=== PATIENT | male | born 1965 | race Two or more races ===

== ENCOUNTER 2024-01-17 14:02 | Inpatient (IN) ==
[2024-01-17] MEDS: TICAGRELOR 90 MG TAB ONE (14:09)
[2024-01-17] MEDS: HEPARIN SOD (PORCINE) 1000 UNIT/ML ONE (14:09)
[2024-01-17] MEDS ORDERED: HEPARIN SOD (PORCINE) 1000 UNIT/ML IV ONE (14:15)
[2024-01-17] MEDS ORDERED: TICAGRELOR 90 MG TAB PO ONE (14:15)
--- NOTE | 2024-01-17 14:21 | XRay Report ---
SINGLE VIEW CHEST CLINICAL HISTORY: Atypical chest pain. FINDINGS: An AP, portable, upright chest radiograph is obtained. No prior studies are available for c omparison at the time of dictation. There is abnormal widening of the mediastinum. The heart is top n ormal for projection. Atelectasis is noted at the lung bases. The lungs and pleural spaces are otherw ise clear. No pneumothorax is seen. The bony thorax is grossly intact. IMPRESSION: 1. The lungs are clear. 2. There is abnormal widening of the mediastinum, which is an indeterminant finding and could potenti ally be seen with lymphadenopathy. A contrast enhanced chest CT is recommended for further assessment . ACT 112: Negative or not required by law. Electronically signed by: Julián Coleamn M.D. 01/17/2024 2:20 PM
--- NOTE | 2024-01-17 14:22 | Emergency Department Note ---
Impression & Plan ST elevation (STEMI) myocardial infarction ED Provider Note Provider: Giovani Raman MD DATE OF SERVICE: 01/20/2024 CHIEF COMPLAINT: Chest pain HISTORY OF PRESENT ILLNESS: Patient is a 58-year-old gentleman presented via ambulance from [facility] today with reports of onset of midsternal chest discomfort around 1230p or so. Some left arm numbness is reported. Had nitroglycerin prior to arrival without improvement of pain. Contacted by EMS prior to arrival with prehospital EKG indicative of inferior lateral wall STEMI. Patient with a history of hypertension and took Norvasc this morning. Sharp central chest pain. Slight numbness to left arm. Nausea earlier not now after receiving nausea medication. EMS gave 324mg of aspirin as well as 8 mg of morphine and 4 mg of Zofran. Patient denies a cardiac history or family history of heart disease. PAST MEDICAL HISTORY: As noted above MEDICATIONS: Norvasc reported SOCIAL HISTORY: Currently at the [facility], states he is a non- smoker, speak Rwandan PHYSICAL EXAM: GENERAL: alert and oriented in no acute distress on stretcher, guards at bedside, shackles in place and arms and wrists Head: normocephalic and atraumatic EYES: No injection, discharge or icterus. NECK: Trachea midline. Supple. ENT: Mucous membranes pink and moist. LUNGS: Airway patent. No retractions. Breath sounds clear with good air entry bilaterally. HEART: Regular rate and rhythm. Minimal chest wall tenderness. No crepitus. No signs of trauma. ABDOMEN: Soft and non-tender, without guarding or rebound. SKIN: Acyanotic, warm, dry, without rashes EXTREMITIES: Without swelling, tenderness or deformity NEUROLOGICAL: No focal deficits. No aphasia. No facial droop or slurred speech. EK bpm sinus rhythm without PAC. 1 P[address] noted. Acute inferior ST segment elevation with aVL and V1 V2 T wave inversion ST depression. Slight borderline V6 ST elevation. QTc 455. CONTINUOUS CARDIAC MONITORING: was ordered and showed a heart rate of 70s to 80s bpm in normal sinus rhythm Patient's laboratory studies and imaging reviewed. Differential includes Cardiac ischemia, aortic dissection, pulmonary embolism, pneumothorax, pneumonia, pericarditis, myocarditis, esophageal rupture, GERD, cholecystitis, pancreatitis, musculoskeletal, as well as other pathologies. IMPRESSION/MEDICAL DECISION MAKING: Heart alert based on prehospital EKG. Patient history of hypertension but no cardiac history reported. Inferior ST changes. Nitroglycerin prior and without improvement. Given Zofran and morphine for symptom control by EMS prior to arrival. EKG obtained here and basic blood work. Automobile Damage Appraiser service was used for communication with the patient although he has some broken Pashto. Denies breathing issue currently. Interventional cardiology evaluated the patient and their EKG. primarily inferior ST segment elevation. Given 180 mg of oral Brilinta as well as 5000 units of IV heparin. Discussed with the patient via rehabilitation services coordinator service and benefits of proceeding with cardiac catheterization. Not hypoxic or tachycardic here. Afebrile. Doubt infectious source. Benign abdomen. Chest x-ray without obvious pneumothorax or pneumonia, questionably some mediastinal widening. Lower suspicion this time for VTE/PE. Although patient is hypertensive reports more anterior chest pain with the STEMI findings on EKG lower suspicion for dissection. Believe he emergent needs to go to the [facility]. No leg swelling appreciable and does not seem to be in heart failure. Given lack of improvement earlier prior to arrival with nitroglycerin earlier will not give additional. Patient describes 7 out of 10 pain. Patient is significantly hypertensive upon arrival. Patient to [facility] for further evaluation. Hospitalist team made aware the patient. DIAGNOSIS: STEMI, chest pain DISPOSITION: Evaluated by cardiology to [facility] for further evaluation Critical Care I have personally spent 31 minutes of critical care time in the direct management of this patient. This includes bedside care, interpretation of diagnostic studies, and testing, discussion with consultants, patient, and other required patient management activities. These 31 minutes is in excess of all separately billable procedures. Past Med/Surg History Problem List (Updated 01/17/24 @ 13:51 by Giovani Raman M.D.) ST elevation (STEMI) myocardial infarction (Acute) Social History Smoking Status: Unknown if ever smoked Preferred Language: Rwandan Feels Safe at Home: Yes Results & Data (ED) Vital Signs Vital Signs - 24 hr 01/17/24 14:03 01/17/24 14:15 Temperature 36.6 C Temperature Source Oral Pulse Rate 79 77 Respiratory Rate 22 Respiratory Effort / Characteristics Non-Labored Spontaneous Respiratory Depth Normal Blood Pressure 171/122 H Blood Pressure Mean 138 Pulse Oximetry 100 Oxygen Delivery Method Room Air Sepsis Recent Fever Within 48 Hours No Sepsis New/Unexplained Change in Mental Status N/A Sepsis Action Taken by Nursing No Action Required Laboratory Data 01/17/24 14:13 01/17/24 14:13 Lab Results 01/17/24 Range/Units 14:14 POC Hgb 12.6 L (14.0-18.0) g/dl POC Hct 37 L (42-52) % POC Sodium 140 (135-144) mmol/L POC Potassium 3.9 (3.3-5.0) mmol/L POC Chloride 105 (101-112) mmol/L POC Total CO2 22 L (24-31) mmol/L POC Anion Gap 18.0 (16-25) mmol/L POC BUN 20 H (7-18) mg/dl POC Creatinine 1.3 (0.6-1.3) mg/dl POC Glucose (other) 112 H (70-99) mg/dl POC Ioniz Calcium Sirisha 1.13 (1.12-1.32) mmol/l Administered Medications Discontinued Medications Heparin Sodium (Porcine) (Heparin Sod (Porcine) 1000 Unit/Ml) Confirm Administered Dose 1,000 units .ROUTE .Q-go ONE Stop: 01/17/24 13:59 Last Admin: 01/17/24 14:09 Dose: 5,000 units Documented By: MIKE Co-signed By: ELAN Ticagrelor (Ticagrelor 90 Mg Tab) Confirm Administered Dose 180 mg .ROUTE .Mister Spex ONE Stop: 01/17/24 13:59 Last Admin: 01/17/24 14:09 Dose: 180 mg Documented By: MIKE Imaging Data Radiologist's Impression: Chest X-Ray 01/17/24 13:59 SINGLE VIEW CHEST CLINICAL HISTORY: Atypical chest pain. FINDINGS: An AP, portable, upright chest radiograph is obtained. No prior studies are available for comparison at the time of dictation. There is abnormal widening of the mediastinum. The heart is top normal for projection. Atelectasis is noted at the lung bases. The lungs and pleural spaces are otherwise clear. No pneumothorax is seen. The bony thorax is grossly intact. IMPRESSION: 1. The lungs are clear. 2. There is abnormal widening of the mediastinum, which is an indeterminant finding and could potentially be seen with lymphadenopathy. A contrast enhanced chest CT is recommended for further assessment. ACT 112: Negative or not required by law. Electronically signed by: Julián Coleman M.D. 01/17/2024 2:20 PM Discharge Plan Visit Data Chief Complaint: Heart Alert ED Provider: Giovani Raman
[2024-01-17 14:27] LABS: iSTAT Creatinine 1.3 mg/dl (0.6-1.3); iSTAT Hemoglobin 12.6 g/dl (14.0-18.0); iSTAT Ionized Calcium 1.13 mmol/l (1.12-1.32); iSTAT Potassium 3.9 mmol/L (3.3-5.0)
[2024-01-17 14:38] LABS: Basophils # (auto) 0.01 K/uL (0.00-0.20); Basophils % (auto) 0.2 %; Eosinophils # (auto) 0.04 K/uL (0.00-0.50); Eosinophils % (auto) 0.7 %; Hematocrit (blood only) 37.1 % (42.0-52.0); Hemoglobin 12.9 g/dl (14.0-18.0); Immature Granulocytes # (auto) 0.01 K/uL (0.01-0.20); Immature Granulocytes % (auto) 0.2 %; Lymphocytes # (auto) 2.35 K/uL (1.20-3.40); Mean Corpuscular Hemoglobin 30.1 pg (25.0-34.0); Mean Corpuscular Hgb Conc 34.8 g/dL (32.0-36.0); Mean Corpuscular Volume 86.7 fL (80.0-100.0); Neutrophils # (auto) 2.45 K/uL (1.40-6.50); Neutrophils % (auto) 44.9 %; Platelet Count 150 K/uL (130-400); RDW Coefficient of Variation 12.9 % (11.5-14.5); RDW Standard Deviation 40.9 fL (36.4-46.3); Red Blood Count 4.28 M/uL (4.70-6.10); White Blood Count 5.46 K/ul (4.8-10.8)
[2024-01-17 14:51] LABS: Alanine Aminotransferase 25 U/L (7-52); Albumin Level 3.4 gm/dl (3.4-5.0); Alkaline Phosphatase 100 U/L (34-104); Anion Gap 6 (3-11); Aspartate Aminotransferase 24 U/L (13-39); BUN Creatinine Ratio 18.9 (10-20); Bilirubin,Total 0.6 mg/dl (0.2-1.0); Blood Urea Nitrogen 21 mg/dl (6-23); Carbon Dioxide 25 mmol/L (21-32); Chloride 106 mmol/L (98-107); Creatine Kinase 306 U/L (30-223); Globulin 3.4 gm/dl (2.5-4.0); Glucose 113 mg/dl (70-99(Fasting)); Lipase 15 U/L (11-82); Sodium 137 mmol/L (136-145); Total Protein 6.8 gm/dl (6.0-8.3)
[2024-01-17 14:57] LABS: Troponin I High Sensitivity 17.3 pg/ml (0-20)
[2024-01-17 15:06] LABS: Thyroid Stimulating Hormone 2.231 uIu/ml (0.300-4.500)
[2024-01-17 15:21] LABS: Partial Thromboplastin Time 26 Seconds (21-31)
[2024-01-17] MEDS: HEPARIN (PORCINE) 1000 UNIT/ML 10 ML (CATH LAB USE ONLY) ONE (15:48)
[2024-01-17] MEDS: OPTIRAY 350 ONE (15:49)
[2024-01-17] MEDS: MIDAZOLAM HCL 1 MG/ML 2ML VIAL ONE (15:49)
[2024-01-17] MEDS: niCARdipine HCL INJ 2.5 MG/ML 10 ML AMP ONE (15:49)
[2024-01-17] MEDS: NITROGLYCERIN/D5W 100MCG/ML 20ML SYR ONE (15:50)
[2024-01-17] MEDS: fentaNYL citrate PF 100 MCG/2 ML VIAL ONE ×2 (15:50→15:52)
--- NOTE | 2024-01-17 15:51 | Critical Care Consultation ---
Date of Consultation January 17, 2024 Assessment & Plan (1) ST elevation (STEMI) myocardial infarction: (2) Hypertension: Plan Assessment: Pt is a 58 yo uzbek-speaking male with a past medical history of HTN only who presents to the hospital on 01/16 for STEMI, s/p heart cath with LCX stent x1 placement on 01/16. Critical care indication:Cardiac monitoring s/p heart cath Plan: Neurologic No acute concerns at this time Cardiac HTN STEMI s/p heart cath with 1 stent placed in L circumflex on 01/16 metoprolol tartrate 25 mg BID DAPT; aspirin and brillinta high intensity statin therapy Respiratory No prior history of respiratory disease Maintaining adequate oxygen saturation on room air Gastrointestinal Diet: heart healthy diet Renal/electrolytes No significant electrolyte derangement at this time Cr 1.11 on admission, no known chronic kidney disease monitor Cr daily Genitourinary No acute concerns at this time Endocrine No acute concerns at this time Hematologic Hgb stable at this time, 12.9 on admission Infectious disease Afebrile since admission No concern for infection at this time Integumentary No concerns at this time Lines/access PIVs intact Prophylaxis DVT ppx: deferred in the setting of pt being immediately post-op Thank you the opportunity to participate in this patient's care. Please see attending documentation for further recommendations. History of Present Illness Reason for Consultation: ICU admission Requesting Physician: Dr. Yasmani Jimenez Attending Physician: Tashi Avelar MD, PhD History of Present Illness Pt is a 58 yo uzbek-speaking male with a past medical history of HTN only who presents to the hospital on 01/16 for STEMI, s/p heart cath with LCX stent x1 placement on 01/16. Pt is uzbek speaking, so a translation service was used to communicate. Pt states that his symptoms started around 12:30 today with midsternal sharp chest pain radiating to his L arm. He states he has never had a heart attack or stroke before. His only medical history that he knows of is HTN for which he takes a medication for that he does not recall at this time. He states that he has no hx of bleeding or clotting disorders that he knows about. Seen today post-stent placement and states his chest pain feels like its getting better and the nausea he had before the procedure is also getting better. No headaches or blurry or double vision. Patient History Social History Smoking Status: Unknown if ever smoked Preferred Language: Telugu Feels Safe at Home: Yes Review of Systems Review of Systems: All systems reviewed & are unremarkable except as noted in HPI & below Physical Exam Physical Exam: General: Alert and oriented, no acute distress HEENT: Normocephalic, atraumatic, Resp: Lungs clear to auscultation bilaterally, no increased work of breathing Cardio: Regular rate and rhythm, no murmurs GI: Soft and nontender, nondistended, bowel sounds active Skin: Warm, dry, no rashes on visible skin Neuro: Nonfocal exam, moving all extremities spontaneously, EOMI Results & Data Results & Data Vital Signs (Past 12 Hours) Vital Signs Temp Pulse Resp BP Pulse Ox O2 Del Method 01/17/24 14:15 77 01/17/24 14:03 36.6 C 79 22 171/122 H 100 Room Air Resident Activity Tracking Resident Involvement: Resident Care Provided Care Provided: Adult Hospital Medicine
--- NOTE | 2024-01-17 16:07 | Pre Anesthesia Assessment ---
Date of Service January 17, 2024 Pre Sedation Assessment Vital Signs Temp Pulse Resp BP Pulse Ox O2 Del Method 01/17/24 14:15 77 01/17/24 14:03 36.6 C 79 22 171/122 H 100 Room Air Cardiovascular RRR, no murmur, no edema Respiratory normal respiratory effort, lungs clear to auscultation Pre-Sedation Airway Assessment Smoking Status: Unknown if ever smoked Mallampati 2 ASA 4 Notes The planned sedation has been discussed with the patient. Informed Consent was obtained. I have identified the patient, determined the appropriateness of sedation and have assessed the patient immediately prior to the procedure. All medicine(s) and interventions are by my order. [facility] [place] Codes (Charges) Indication for Procedure Indication for procedure: ST elevation [place]
--- NOTE | 2024-01-17 16:10 | Post Anesthesia Assessment ---
Date of Service January 17, 2024 Post Sedation Assessment Vital Signs Temp Pulse Resp BP Pulse Ox O2 Del Method 01/17/24 14:15 77 01/17/24 14:03 36.6 C 79 22 171/122 H 100 Room Air Recovery Score Activity: Moves 4 extremities Respiration: Deep Breath/Cough Circulation: +/-20% PreAnes Value Consciousness: Fully Awake Oxygen Saturation: > 92% On Room Air Discharge Sedation Level of Care: Fast Track Phase II Post Sedation Plan On clinical assessment, the patient appears to have tolerated the sedation without complications. Patient is recovering as anticipated. Patient will continue to be monitored by nursing and may be discharged when sedation discharge criteria are met per below protocol. Upon Completions of procedure up to 15 minutes continue every 5 minute vital signs and the P.A.R. score; then discharge to a Phase I or Fast Track to Phase II per the following guidelines: * Discharge Patient to appropriate Phase II area if PAR is 8 or greater or return to pre- procedure baseline. The post - procedure orders will be as directed. * If PAR score is less than 8 or not return to pre-procedure baseline then patient will follow Phase I monitoring till PAR is reached for Phase II. The Phase I may be done in procedure room or may call to secure a Phase I area. * If naloxone or flumazenil are used for reversal, hold in Phase I for continued monitoring from when last reversal dose was given for a minimum of 60 minutes or longer pending the nurse and/or physician discretion of patient condition before discharge to Phase II. Please call the Sedation Physician to re-evaluate and complete post-note for discharge to Phase II area. Do NOT discharge from procedure sedation or Phase 1 until post- sedation evaluation note is complete by procedure /sedation MD Sedation Discharge Instructions to be given to the patient at discharge to home. [facility] Procedure Codes (Charges) Indication for Procedure Indication for procedure: ST elevation [place] Sedation/Anesthesia Procedure 1: Sedation/Anesthesia: 22714 Mod Sedation by the same physician;Init15 Min Child Age 5 & Up (Initial 15 minutes, start time 1427) Total Sedation Time (minutes): 56 Procedure 2: Sedation/Anesthesia: 09210 Mod Sedation by the same physician; Ea [id number] Minutes (Additional 41 minutes) Total Sedation Time (minutes): 56
--- NOTE | 2024-01-17 16:14 | Cardiac Catheterization ---
ACC Data: Massotherapist Cardiac Status Clinical evaluation leading to the procedure CAD Presenation: STEMI Anginal Classification: CCS IV Heart Failure: No Cardiogenic Shock within 24 Hours: No Cardiac Arrest within 24 Hours: No Imaging Studies Past 6 Months: No Stress Studies Past 6 Months: No Coronary Anatomy Dominant: Left Left Main (% Stenosis): Normal LAD (% Stenosis): Normal D1 (% Stenosis): Normal Circumflex (% Stenosis): Proximal (Mild 20 to 30%), Mid (Luminal irregularities) and Distal (100% at OM 2) OM1 (% Stenosis): Normal OM2 (% Stenosis): Normal RCA (% Stenosis): Proximal (Mild less than 20%) Ramus (% Stenosis): Normal Diagnostic Physicians Name: Tashi Avelar MD, PhD Closure Device Percutaneous Entry Location: Both radial and femoral Closure Device: Angio-Seal and Radial Band Recommendations: Medical Therapy and/or Counseling and PCI without planned CABG PCI Indication: PCI for STEMI - Unstable First Noted: First EKG Reason For Delay in PCI:: Difficulty crossing culprit lesion Lesion Segment Name: Mid to distal circumflex Culprit Artery: Yes Stenosis Prior to Rx (%): 100% Chronic Total Occlusion: No Pre-Procedure EDELMIRA Flow: 0 Previously Treated Lesion: No Lesion Complexity: Non-High/Non-C Lesion Length (mm): 12 Thrombus Present: Yes Bifurcation Lesion: Yes Guidewire Across Lesion: Yes Intraprocedure Events Significant Disection: No Perforation: No Cardiac Cath Procedure Full Procedure Date January 17, 2024 Pre-Procedure Diagnosis Pre-Procedure Diagnosis: STEMI AUC Score AUC Score: 09 Post-Procedure Diagnosis Post-Procedure Diagnosis: Severe CAD and Successful PCI Procedure(s) Performed Procedure(s) Performed: Coronary Angiography, Drug Eluting Stent and Ultrasound Guided Vascular Access Driver Education Instructor Tashi Avelar MD, PhD Estimated Blood Loss Estimated Blood Loss: 10 cc Medication(s) Medication(s): Adenosine, Fentanyl, Heparin, Lidocaine 1%, Nicardipine, Nitroglycerin and Versed Summary of Findings Brief description: Patient was brought to the cardiac catheterization suite where he was shaved and prepped in a sterile fashion. Soft tissues of the right wrist were anesthetized using 2 mL of 1% Xylocaine. The right radial artery was accessed with a modified Seldinger technique and a 6 Burundian radial artery glide sheath was placed. Patient was provided anticoagulation with IV heparin and antispasmodics including nicardipine and nitroglycerin. All catheters were advanced and exchanged over a 0.035 J-tip wire. Right coronary angiography was performed in orthogonal views with a 6 Burundian JR4 guide catheter. After angiography it became apparent evidence that we would be unable to complete the procedure from the radial approach because of significant tortuosity in the innominate artery. We therefore abandon further attempts from the radial artery. Soft tissue the right groin was anesthetized using 10 mL of 1% Xylocaine. Using ultrasound for guidance (image saved), the right femoral artery was accessed with a 4 Burundian micropuncture kit. Then, the micropuncture sheath was exchanged for a 6 [place]undian femoral artery sheath over the short J-wire. All catheters were subsequently advanced and exchanged over the 0.035 J-tip wire. Left coronary angiography was performed in orthogonal views with a 5 Burundian JL 4 diagnostic catheter. Decision was made to proceed immediately to PCI. ACT was checked and additional heparin was provided to maintain therapeutic anticoagulation. 6 [place]ian EBU 3.5 guide catheter was used to engage the left main coronary artery. BMW universal guidewire was advanced under fluoroscopic guidance to the level of the distal circumflex lesion. A 2.0 x 12 mm trek balloon was advanced over the guidewire and was used as backup support to advance the guidewire further. We were able to then positioned the wire in the most distal portion of the circumflex. The lesion was predilated using 2.0 x 12 mm trek balloon up to 17 kevin 3.5 x 15 Honorio drug-eluting stent was then placed across the lesion and deployed at 16 kevin. Scrum Coach angiography performed. mid and proximal portions of the stent were postdilated using a NC Glenn 4.0 x 8 mm balloon at 18 and 20 kevin respectively. Final postdilatation of the proximal portion using an NC Glenn 4.5 x 12 mm balloon at 15 kevin. Balloon then removed. Guidewire removed. Final angiographic evaluation was performed in orthogonal views. Limited right femoral artery angiography was performed to evaluate for closure. Findings were favorable, therefore the 6 Burundian femoral artery sheath was exchanged for a 6 [place]ian Angio-Seal closure device. Was deployed in the recommended fashion. We obtained immediate hemostasis and the patient remained hemodynamically stable. He was returned to the recovery area. This ended the case. Coronary angiography findings and PCI: [id number] vessel trifurcating into LAD, circumflex, and ramus. Mild luminal irregularities. LAD large caliber and transapical vessel. Gives a large D1 there is diffuse luminal irregularities. Ulxuh-dhzgt-harxfgf vessel with proximal mild less than 20 to 30% stenosis. KUl-hdhot-uvhzwdm and probably dominant vessel. Very tortuous as it travels in the AV groove. Proximal segment with mild less than 20 to 30% stenosis. Gives a large branching OM1. Continues further in the AV groove and then at the level where it gives a small OM 2 it is 100% occluded. EDELMIRA 0 flow. There is hazy thrombus appearing material in the vessel stains distal to the occlusion. ARA-vqqtj-bhfqjbd and probably nondominant. Diffuse mild plaques proximally and ectasia. Note: Both the right and left coronaries are very large and ectatic in the proximal to mid portions. There is associated sluggish flow throughout. PCI of mid to distal circumflex 0% residual stenosis post PCI EDELMIRA II to EDELMIRA-3 flow post PCI No evidence of dissection or perforation post PCI Circumflex is seen to continue distally in the AV groove where there is diffuse mild plaque and ectasia. It provides a medium to large caliber posterolateral and a large caliber PDA distally where it terminates. Hemodynamics Rest Ao:: 142/85 mmHg Final Ao: 124/78 mmHg LV: Not performed Recommendations Recommendations: Medical Therapy and/or Counseling and PCI without planned CABG Radiation Exposure (mGy) 1923 mGy, fluoroscopy time 13.5 minutes Contrast (mls) 220 cc Anesthesia 2 mg Versed, 75 mcg fentanyl IV. Start time 1427, end time 1523 Procedural Complication(s) None Disposition ICU I attest to the content of the Intraoperative Record and any orders documented therein. Any exceptions are noted below. [facility] Card Cath Procedure Codes Cardiac Catheterization Procedure 1: Cardiovascular Cath Procedures: 55394 Coronaries Therapeutic Services & Ancillary Procedure 1: Cardiovascular Tx and Anc Procedures: 24721 Ultrasonic Guidance Vascular Access Moderate Sedation Procedure 1: Sedation/Anesthesia: 52101 Mod Sedation by the same physician;Init15 Min Child Age 5 & Up (Initial 15 minutes, start time 1427) Procedure 2: Sedation/Anesthesia: 69174 Mod Sedation by the same physician; Ea [id number] Minutes (Additional 41 minutes, end time 1523) Stenting Procedure 1: Cardiovascular Stent Procedures: 04663 Perc transluminal revascularization of acute sub/total occl, aMI (LCx) PG Care Time/CCT Total # of Minutes Spent Total Time Spent with Patient: Total time spent is greater than 50% in coordination of care (as documented) at patient's floor/unit and/or counseling patient:
[2024-01-17 16:32] LABS: Basophils # (auto) 0.02 K/uL (0.00-0.20); Basophils % (auto) 0.2 %; Hematocrit (blood only) 40.8 % (42.0-52.0); Hemoglobin 13.5 g/dl (14.0-18.0); Immature Granulocytes # (auto) 0.03 K/uL (0.01-0.20); Immature Granulocytes % (auto) 0.3 %; Lymphocytes # (auto) 1.49 K/uL (1.20-3.40); Lymphocytes % (auto) 16.5 %; Mean Corpuscular Hemoglobin 29.5 pg (25.0-34.0); Mean Corpuscular Hgb Conc 33.1 g/dL (32.0-36.0); Mean Corpuscular Volume 89.1 fL (80.0-100.0); Mean Platelet Volume 10.1 fL (9.4-12.4); Monocytes # (auto) 0.67 K/uL (0.11-0.59); Monocytes % (auto) 7.4 %; Neutrophils # (auto) 6.82 K/uL (1.40-6.50); Neutrophils % (auto) 75.6 %; Platelet Count 146 K/uL (130-400); RDW Coefficient of Variation 13.1 % (11.5-14.5); RDW Standard Deviation 42.7 fL (36.4-46.3); Red Blood Count 4.58 M/uL (4.70-6.10); White Blood Count 9.03 K/ul (4.8-10.8)
--- NOTE | 2024-01-17 17:00 | Cardiology Consultation ---
Date of Consultation January 17, 2024 Assessment & Plan (1) Coronary artery disease: Status post PCI for acute HI. He has mild residual disease and coronary ectasia. Guideline directed medical therapy has been initiated with low-dose aspirin, high intensity statin therapy, beta-shira, and we will add an MARLIN inhibitor or angiotensin receptor shira as needed/tolerated. 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 High intensity statin therapy initiated with a atorvastatin 40 mg daily. Will check a fasting lipid panel to determine his target LDL reduction. (3) ST elevation (STEMI) myocardial infarction: Successful PCI with implantation of a large caliber drug-eluting stent. He will remain on dual antiplatelet therapy for at least 1 to 2 years. Given the ectatic nature of his coronaries and sluggish flow it would be best if he could remain on dual antiplatelet therapy indefinitely. Will obtain an echocardiogram to evaluate EF. (4) Hypertension: Blood pressure was very elevated. We started metoprolol succinate ER and I would like him to start on losartan or valsartan if his renal function and blood pressure will allow. Plan 24 hours in the ICU. Complete workup as above and additional recommendations pending results. History of Present Illness Reason for Consultation: STEMI Attending Physician: Tashi Avelar MD, PhD History of Present Illness 58-year-old Swedish-speaking prisoner brought to the emergency department from the senior care when he developed chest discomfort. No prior history of coronary artery disease. His EKG in the emergency department was suggestive of acute i nferior ST elevation HI. Briefly using the writing center director service I notified the patient that he appeared to be having an acute HI and that we recommended emergent cardiac catheterization plus or minus PCI pending findings. He understood this and wished to proceed. Patient was taken emergently to the cardiac catheterization suite where he underwent coronary angiography. During the procedure he had significant bradycardia requiring atropine administration. Diagnostic coronary angiography revealed generalized sluggish flow in the coronaries secondary to significant dilation and ectasia. He had an occluded mid to distal dominant circumflex which we then treated with a large caliber drug-eluting stent postdilated to its maximum capacity. This reestablished relatively normal coronary flow to his posterolateral and PDA branches. His ST segment elevations resolved and he had no further chest discomfort. He has now been admitted to the ICU for further workup and management. He was provided Brilinta 180 mg p.o. loading dose in the emergency room in addition to aspirin and heparin IV in both the emergency department and the Manager Of Finance. Allergies Allergy/AdvReac Type Severity Reaction Status Date / Time No Known Allergies Allergy Unverified 01/17/24 16:46 Patient History Social History Smoking Status: Unknown if ever smoked Preferred Language: Swedish Feels Safe at Home: Yes Review of Systems Review of Systems: Limited review given emergent nature of presentation and language limitations. Does not sound as if he was having significant symptoms prior to today. Physical Exam Constitutional: WD/WN, vitals as above Neck: No JVD Respiratory: Clear to auscultation bilaterally. No wheezing, rhonchi, or rales. Cardiovascular: Regular rate and rhythm. S4 gallop. Distant heart sounds. I do not appreciate any murmurs at this time. No edema. Musculoskeletal: no cyanosis or clubbing, extremities motor strength 5/5 Neurologic: Cognition is intact. Speech is fluent. No focal deficits. Psychiatric: A+Ox3, euthymic affect Results & Data Vital Signs (Past 12 Hours) Vital Signs Temp Pulse Resp BP Pulse Ox O2 Del Method 01/17/24 14:15 77 01/17/24 14:03 36.6 C 79 22 171/122 H 100 Room Air PG Care Time/CCT Total # of Minutes Spent Total Time Spent with Patient: Total time spent is greater than 50% in coordination of care (as documented) at patient's floor/unit and/or counseling patient: A total of 45 minutes critical care time was spent in the initial evaluation, examination, review of records, discussion with the emergency department staff, discussion with the patient, and discussion with the cardiac catheterization team. At this time also includes the time for formulation and implementation of a plan of care and all associated documentation. This time is exclusive of the time spent for the procedure. Coding Level of Care Code 22711 CRITICAL CARE 1ST 30-74M Diagnoses Coronary artery disease I25.[address] elevation (STEMI) myocardial infarction I21.3 Involved coronary artery: unspecified coronary artery Hypertension I10 Time Spent (min) 45 (3) ST elevation (STEMI) myocardial infarction Involved coronary artery: unspecified coronary artery Qualified Code(s): I21.3 - ST elevation (STEMI) myocardial infarction of unspecified site
[2024-01-17] MEDS: Patient's ALLERGY Info needs ENTERED SCH (17:01)
[2024-01-17] MEDS: ICU Protocol for HYPERglycemia SCH (17:01)
[2024-01-17] MEDS: SODIUM CHLORIDE 0.9% 1,000 ML IV SCH (17:01)
--- NOTE | 2024-01-17 17:22 | History & Physical Report ---
Date of Service January 17, 2024 Assessment & Plan (1) ST elevation (STEMI) myocardial infarction: Plan: Emergent cardiac catheterization performed by Dr Avelar - 100% occluded mid to distal circumflex with PCI and x1 JESSEE placed Mg 2.0, K 4.0 ASA, Brilinta, Metoprolol, Atorvastatin TTE Admit to ICU Appreciate cardiology and video games mechanic management (2) Hypertension: Plan VTE Prophylaxis - deferred to ICU team Diet - heart healthy Disposition - admit to ICU Admission and Anticipated Discharge Date Admission Date: January 17, 2024 History of Present Illness Chief Complaint: Chest pain Primary Care Provider: Omar Bolivar DO Elijah Figueroa is a 58 year old male who presents to the ER with chest pain. History taken with ER provider during heart alert, examination occurred following cardiac catheterization. Chest pain (midsternal) started at 12:30 PM with associated left arm numbness. ST elevations in inferior leads on EKG therefore heart rule out was called prior to arriving in the hospital. He was given 4 mg ondansetron, 4 mg morphine, 324 mg of aspirin and x 2.4 mg sublingual nitroglycerin en route to the hospital. No improvement with nitroglycerin given. Associated nausea now resolved after medication given by EMS. No personal or family history of cardiac disease. Allergies Allergy/AdvReac Type Severity Reaction Status Date / Time No Known Allergies Allergy Unverified 01/17/24 16:46 Past Med/Surg History Problem List (Updated 01/17/24 @ 17:16 by Yasmani Jimenez MD) Atherogenic dyslipidemia Coronary artery disease ST elevation (STEMI) myocardial infarction (Acute) Medical History (Updated 01/17/24 @ 17:16 by Yasmani Jimenez MD) Hypertension Social History Smoking Status: Never smoker Hx Alcohol Use: No Hx Substance Use: No Preferred Language: Lithuanian Communication Ability: Effective Lines Tender Required: Yes and Voice Beliefs That Will Affect Care: None Current Living Situation: Other Current Living Situation Comment: Correctional facility Other Information That Helps Us Care for You: No Feels Safe at Home: Yes Safety Concerns: Feels Safe At This Time Assistive Devices: None Review of Systems Review of Systems: All systems reviewed & are unremarkable except as noted in HPI & below Physical Exam Constitutional: WD/WN, vitals as above Respiratory: normal respiratory effort, lungs clear to auscultation Cardiovascular: RRR, no murmur, no edema Gastrointestinal (Abdomen): normal bowel sounds, soft, nontender, no hepatosplenomegaly Skin: no rashes, warm and dry Neurologic: moves all extremities and awake; not confused Results & Data Results & Data Vital Signs (Past 12 Hours) Vital Signs Temp Pulse Resp BP Pulse Ox O2 Del Method 01/17/24 14:15 77 01/17/24 14:03 36.6 C 79 22 171/122 H 100 Room Air Laboratory Results Abnormal lab results 01/17/24 01/17/24 01/17/24 Range/Units 14:13 14:14 14:45 RBC 4.28 L (4.70-6.10) M/uL Hgb 12.9 L (14.0-18.0) g/dl POC Hgb 12.6 L (14.0-18.0) g/dl Hct 37.1 L (42.0-52.0) % POC Hct 37 L (42-52) % Neut # (Auto) (1.40-6.50) K/uL [place] # (Auto) 0.60 H (0.11-0.59) K/uL Activ Coag Time Kaolin 183 H (94-140) SECONDS POC Total CO2 22 L (24-31) mmol/L POC BUN 20 H (7-18) mg/dl Glucose 113 H (70-99(Fasting)) mg/dl POC Glucose (other) 112 H (70-99) mg/dl Calcium 8.0 L (8.6-10.3) mg/dl Total Creatine Kinase 306 H (30-223) U/L 01/17/24 01/17/24 Range/Units 15:08 16:17 RBC 4.58 L (4.70-6.10) M/uL Hgb 13.5 L (14.0-18.0) g/dl POC Hgb (14.0-18.0) g/dl Hct 40.8 L (42.0-52.0) % POC Hct (42-52) % Neut # (Auto) 6.82 H (1.40-6.50) K/uL [place] # (Auto) 0.67 H (0.11-0.59) K/uL Activ Coag Time Kaolin 244 H (94-140) SECONDS POC Total CO2 (24-31) mmol/L POC BUN (7-18) mg/dl Glucose (70-99(Fasting)) mg/dl POC Glucose (other) (70-99) mg/dl Calcium (8.6-10.3) mg/dl Total Creatine Kinase (30-223) U/L Diagnostic Findings SINGLE VIEW CHEST CLINICAL HISTORY: Atypical chest pain. FINDINGS: An AP, portable, upright chest radiograph is obtained. No prior studies are available for comparison at the time of dictation. There is abnormal widening of the mediastinum. The heart is top normal for projection. Atelectasis is noted at the lung bases. The lungs and pleural spaces are otherwise clear. No pneumothorax is seen. The bony thorax is grossly intact. IMPRESSION: 1. The lungs are clear. 2. There is abnormal widening of the mediastinum, which is an indeterminant finding and could potentially be seen with lymphadenopathy. A contrast enhanced chest CT is recommended for further assessment. Medications Administered ER medications given: Brilinta 180 mg p.o. Heparin 5000 units IV ECG Rate (beats per minute): 74 Rhythm: normal sinus Findings: + 1st degree AV block, + PVC and + ST elevation (Inferior with reciprocal ST depression anteriorly) Comparison ECG Date: no prior available Code Status & VTE Plan Code Status Full VTE Prophylaxis Plan VTE Prophylaxis will be ordered: Yes PG Care Time/CCT Total # of Minutes Spent Total Time Spent with Patient: Total time spent is greater than 50% in coordination of care (as documented) at patient's floor/unit and/or counseling patient: Coding Level of Care Code 35522 INT INP/OBS CARE 3/75MIN Diagnoses ST elevation (STEMI) myocardial infarction I21.3 Hypertension I10
[2024-01-17] MEDS: METOPROLOL TARTRATE 25 MG TAB PO SCH (18:07)
[2024-01-17] MEDS: LOSARTAN POTASSIUM 25 MG TAB PO SCH (19:15)
--- NOTE | 2024-01-17 20:22 | Electrocardiogram Report ---
Test Reason : Blood Pressure : */* mmHG Vent. Rate : 74 BPM Atrial Rate : 74 BPM P-R Int : 232 ms QRS Dur : 88 ms QT Int : 410 ms P-R-T Axes : 60 48 89 degrees QTcB Int : 455 ms Sinus rhythm with 1st degree A-V block with occasional Premature ventricular complexes ST elevation consider inferior injury or acute infarct ACUTE RI / STEMI Abnormal ECG No previous ECGs available Confirmed by Babak Perera ([id number]) on 01/17/2024 8:22:28 PM Referred By: Omar Bolivar Confirmed By: Babak Perera
[2024-01-18 05:02] LABS: Chol HDL Ratio 5.4 (0-5)
[2024-01-18 05:03] LABS: BUN Creatinine Ratio 16.7 (10-20); Calcium 8.8 mg/dl (8.6-10.3); Creatinine Clr Calc Pharmacy 74.5 ml/min; Magnesium 2.3 mg/dl (1.7-2.4); Potassium 4.1 mmol/L (3.5-5.1)
--- NOTE | 2024-01-18 07:37 | Critical Care Progress Note ---
Date of Service January 18, 2024 Assessment & Plan (1) ST elevation (STEMI) myocardial infarction: (2) Hypertension: Plan Assessment: Pt is a 58 yo swiss-speaking male with a past medical history of HTN only who presents to the hospital on 01/16 for STEMI, s/p heart cath with LCX stent x1 placement on 01/16. Critical care indication:Cardiac monitoring s/p heart cath Plan: Neurologic No acute concerns at this time Cardiac HTN STEMI s/p heart cath with 1 stent placed in L circumflex on 01/16 metoprolol tartrate 25 mg BID + losartan 25mg qam DAPT; aspirin and brillinta high intensity statin therapy Respiratory No prior history of respiratory disease Maintaining adequate oxygen saturation on room air Gastrointestinal Diet: heart healthy diet Renal/electrolytes No significant electrolyte derangement at this time Cr 1.11 on admission, no known chronic kidney disease, 1.2 today monitor Cr daily Genitourinary No acute concerns at this time Endocrine No acute concerns at this time Hematologic Hgb stable at this time, 12.9 on admission, 13.5 today Infectious disease Afebrile since admission No concern for infection at this time Integumentary No concerns at this time Lines/access PIVs intact Prophylaxis DVT ppx: deferred in the setting of pt being immediately post-op Dispo: Pt stable for downgrade out of the ICU today. Please see attending documentation for further recommendations. Admission and Anticipated Discharge Date Admission Date: January 17, 2024 Supervising Physician Co-Signing Physician Notes Dr. Barrett was the resident-physician during care of patient. I separately evaluated patient for silverio portions of the history and the exam. I was present during the critical portion of medical decision making, and I discussed the case with the resident. I generally agree with the findings and plan except for any additions/exceptions noted. Patient seen and examined at bedside. No acute distress. No adverse events overnight He denied any chest pain. No shortness of breath No nausea vomiting He does complain of pain in the right groin. This is where the access for the cardiac cath was made Denies any headache or blurry vision. Constitutional: No acute distress HEENT: EOMI, PERRLA Respiratory system: Good air entry bilaterally, no wheeze, no rhonchi, no crackles CVS: S1-S2 positive, no murmurs or gallops Abdomen: Soft, nontender, nondistended, positive bowel sounds x4 Extremities: +2 pulses bilaterally radialis/ dorsalis pedis, no cyanosis, no edema Neuro: Awake alert oriented x3 Psych: Normal mood and affect G/U: No George Musculoskeletal: Positive tenderness in the right groin area. No hematoma or bruising appreciated --Prophylaxis VTE: None GI: None Lines: Peripheral Diet: Cardiac Plan: In/out: -1507, urine output 1525 Right groin pain is most likely from the cardiac cath access. Tylenol as needed I do not see any clear signs of bruising or hematoma. Will get CBC today to make sure H&H is stable patient hemodynamically stable to be downgrade to medical floor please note the above document was generated using voice recognition software. It may contain grammatical, syntax or spelling errors.Any formal questions or concerns about the content, text or information contained within the body of this dictation should be directly addressed to the provider for clarification. Subjective Pt seen this morning with Dr. Gar. Pt states he is feeling okay, no chest pain this morning. No nausea. He does note R groin pain today. No acute overnight events per nursing. Review of Systems 2 Review of Systems: Per HPI. Physical Exam 2 Physical Exam: General: Alert and oriented, no acute distress HEENT: Normocephalic, atraumatic, Resp: Lungs clear to auscultation bilaterally, no increased work of breathing Cardio: Regular rate and rhythm, no murmurs GI: Soft and nontender, nondistended, bowel sounds active Skin: Warm, dry, no rashes on visible skin, no bruising noted on R groin area Results & Data Results & Data Vital Signs (Past 12 Hours) Vital Signs Temp Pulse Pulse Resp BP BP Pulse Ox 01/18/24 06:15 53 L 13 137/93 98 01/18/24 05:00 55 L 13 138/89 97 01/18/24 04:00 52 L 12 141/83 H 98 01/18/24 03:34 36.7 C 54 L 14 115/82 97 01/18/24 03:00 53 L 16 115/82 97 01/18/24 01:00 57 L 15 123/82 97 01/18/24 00:00 65 16 128/88 99 01/17/24 23:55 36.5 C 01/17/24 23:50 58 L 01/17/24 22:35 53 L 16 97 01/17/24 22:15 53 L 23 97 01/17/24 22:00 130/91 01/17/24 21:30 36.8 C 01/17/24 21:17 53 L 12 99 01/17/24 21:06 54 L 13 99 01/17/24 20:30 68 01/17/24 20:15 59 L 12 98 01/17/24 20:00 135/94 O2 Del Method 01/18/24 06:15 01/18/24 05:00 01/18/24 04:00 01/18/24 03:34 Room Air 01/18/24 03:00 01/18/24 01:00 01/18/24 00:00 01/17/24 23:55 01/17/24 23:50 01/17/24 22:35 01/17/24 22:15 01/17/24 22:00 01/17/24 21:30 01/17/24 21:17 01/17/24 21:06 01/17/24 20:30 01/17/24 20:15 01/17/24 20:00 Laboratory Results 01/18/24 04:24 01/18/24 04:21 Resident Activity Tracking Resident Involvement: Resident Care Provided Care Provided: Adult Hospital Medicine
[2024-01-18] MEDS: TICAGRELOR 90 MG TAB PO SCH (08:28)
[2024-01-18] MEDS: ASPIRIN 81 MG ECTAB PO SCH (08:28)
[2024-01-18] MEDS: ATORVASTATIN 40 MG TAB PO SCH (08:28)
[2024-01-18] MEDS: ACETAMINOPHEN 325 MG TAB PO PRN (09:07)
[2024-01-18 10:56] LABS: Basophils # (auto) 0.02 K/uL (0.00-0.20); Basophils % (auto) 0.2 %; Eosinophils # (auto) 0.06 K/uL (0.00-0.50); Eosinophils % (auto) 0.7 %; Hematocrit (blood only) 37.4 % (42.0-52.0); Hemoglobin 12.9 g/dl (14.0-18.0); Immature Granulocytes # (auto) 0.01 K/uL (0.01-0.20); Immature Granulocytes % (auto) 0.1 %; Lymphocytes % (auto) 32.3 %; Mean Corpuscular Hgb Conc 34.5 g/dL (32.0-36.0); Mean Platelet Volume 10.4 fL (9.4-12.4); Monocytes # (auto) 0.86 K/uL (0.11-0.59); Monocytes % (auto) 10.7 %; Neutrophils # (auto) 4.51 K/uL (1.40-6.50); Platelet Count 161 K/uL (130-400); RDW Coefficient of Variation 13.2 % (11.5-14.5); RDW Standard Deviation 41.4 fL (36.4-46.3); White Blood Count 8.06 K/ul (4.8-10.8)
--- NOTE | 2024-01-18 11:33 | Billing Data ---
Date of Service January 18, 2024 Coding Level of Care Code 20245 SUB INP/OBS CARE
[2024-01-18 15:59] LABS: Basophils # (auto) 0.01 K/uL (0.00-0.20); Basophils % (auto) 0.1 %; Eosinophils # (auto) 0.05 K/uL (0.00-0.50); Eosinophils % (auto) 0.6 %; Hematocrit (blood only) 39.3 % (42.0-52.0); Hemoglobin 13.1 g/dl (14.0-18.0); Immature Granulocytes # (auto) 0.02 K/uL (0.01-0.20); Immature Granulocytes % (auto) 0.3 %; Lymphocytes # (auto) 2.53 K/uL (1.20-3.40); Lymphocytes % (auto) 31.7 %; Mean Corpuscular Hemoglobin 29.2 pg (25.0-34.0); Mean Corpuscular Hgb Conc 33.3 g/dL (32.0-36.0); Mean Corpuscular Volume 87.5 fL (80.0-100.0); Mean Platelet Volume 10.2 fL (9.4-12.4); Neutrophils # (auto) 4.56 K/uL (1.40-6.50); Neutrophils % (auto) 57.3 %; Platelet Count 150 K/uL (130-400); RDW Coefficient of Variation 13.3 % (11.5-14.5); RDW Standard Deviation 42.3 fL (36.4-46.3); Red Blood Count 4.49 M/uL (4.70-6.10); White Blood Count 7.97 K/ul (4.8-10.8)
--- NOTE | 2024-01-18 19:15 | XCELERA ---
[id number]
--- NOTE | 2024-01-18 19:17 | Cardiology Progress Note ---
Date of Service January 18, 2024 Assessment & Plan (1) ST elevation (STEMI) myocardial infarction: Plan: Post JESSEE to distal circumflex 01/16 No other significant nonculprit disease 2. Preserved LV functionsevere inferolateral hypokinesis, EF 50-55% 3. Moderate aortic regurgitation. 4. Dyslipidemia, LDL 146 5. Brief NSVT Stable from a cardiac standpoint post RI yesterday. Chest pain-free Hemodynamically stable and electrically stable during the day No apparent access site complications. Continue DAPT with aspirin, ticagrelor Atorvastatin to 80 mg daily Continue current metoprolol Continue current losartan From a cardiac standpoint agree with transfer to telemetry today. Possible discharge tomorrow. Will need periodic surveillance of moderate aortic regurgitation as an outpatient. Admission and Anticipated Discharge Date Admission Date: January 17, 2024 Subjective Feeling well today. Denies any chest pain. Reports mild tenderness at right groin access site. No other significant plaints. Telemetry reviewed1 episode of brief NSVT overnight at around 1 AM. Remainder of time sinus primarily in 5060s Review of Systems Review of Systems: All systems reviewed & are unremarkable except as noted in HPI & below Physical Exam Physical Exam: General: Comfortable HEENT: Sclerae anicteric Lungs: Clear to auscultation bilaterally Cardiac: Regular rate and rhythm, faint diastolic murmur Vascular: 2+ radial, no hematoma/ecchymosis. 2+ right CUSTOM BOW MAKER pulse, no hematoma Abdomen: Soft, nontender Extremities: Well perfused, no peripheral edema Neuro: Nonfocal Psych: Alert orient x3, normal affect and mood Results & Data Vital Signs (Past 12 Hours) Vital Signs Temp Pulse Pulse Resp BP BP Pulse Ox 01/18/24 15:22 98.6 F 56 L 18 133/85 97 01/18/24 14:34 60 01/18/24 13:32 01/18/24 13:19 98.1 F 54 L 16 138/84 98 01/18/24 12:06 69 16 91 01/18/24 12:04 98.6 F 01/18/24 11:03 58 L 14 96 01/18/24 11:00 128/85 01/18/24 11:00 128/85 01/18/24 11:00 128/85 01/18/24 11:00 128/85 01/18/24 10:39 55 L 15 97 01/18/24 10:27 55 L 12 97 01/18/24 10:00 135/88 01/18/24 09:57 57 L 14 96 01/18/24 09:01 124/101 H 01/18/24 09:00 73 22 92 01/18/24 08:22 98.8 F 01/18/24 08:15 65 17 96 01/18/24 08:09 75 17 97 01/18/24 08:00 56 L 01/18/24 07:54 68 12 97 01/18/24 07:30 81 21 98 01/18/24 07:24 73 16 97 01/18/24 07:06 56 L 18 97 O2 Del Method 01/18/24 15:22 Room Air 01/18/24 14:34 01/18/24 13:32 Room Air 01/18/24 13:19 Room Air 01/18/24 12:06 01/18/24 12:04 01/18/24 11:03 01/18/24 11:00 01/18/24 11:00 01/18/24 11:00 01/18/24 11:00 01/18/24 10:39 01/18/24 10:27 01/18/24 10:00 01/18/24 09:57 01/18/24 09:01 01/18/24 09:00 01/18/24 08:22 01/18/24 08:15 01/18/24 08:09 01/18/24 08:00 01/18/24 07:54 01/18/24 07:30 01/18/24 07:24 01/18/24 07:06 PG Care Time/CCT Total # of Minutes Spent Total Time Spent with Patient: Total time spent is greater than 50% in coordination of care (as documented) at patient's floor/unit and/or counseling patient: Coding Level of Care Code 27478 SUB INP/OBS CARE 3/50MIN Diagnoses ST elevation (STEMI) myocardial infarction I21.3
--- NOTE | 2024-01-19 06:27 | Hospitalist Progress Note ---
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 (2) Hypertension: Plan VTE Prophylaxis - deferred to ICU team Diet - heart healthy Admission and Anticipated Discharge Date Admission Date: January 17, 2024 Subjective Patient reports no new symptoms. No chest pain, SOB. Bahraini speaker. Physical Exam Physical Exam: General: Alert and oriented, no acute distress HEENT: Normocephalic, atraumatic, Resp: Lungs clear to auscultation bilaterally, no increased work of breathing Cardio: Regular rate and rhythm, no murmurs GI: Soft and nontender, nondistended, bowel sounds active Skin: Warm, dry, no rashes on visible skin, no bruising noted on R groin area Results & Data Results & Data Vital Signs (Past 12 Hours) Vital Signs Temp Pulse Pulse Resp BP BP Pulse Ox 01/19/24 02:41 36.6 C 57 L 18 141/89 H 94 01/19/24 00:00 53 L 01/18/24 22:55 36.7 C 56 L 18 120/80 97 01/18/24 20:01 36.7 C 67 18 129/82 98 O2 Del Method 01/19/24 02:41 01/19/24 00:00 01/18/24 22:55 01/18/24 20:01 Room Air PG Care Time/CCT Total # of Minutes Spent Total Time Spent with Patient: Total time spent is greater than 50% in coordination of care (as documented) at patient's floor/unit and/or counseling patient: Coding Level of Care Code 27693 SUB INP/OBS CARE 2/35MIN Diagnoses ST elevation (STEMI) myocardial infarction I21.3 Hypertension I10
[2024-01-19 07:16] VITALS: RESP 20
[2024-01-19 07:27] LABS: BUN Creatinine Ratio 14.9 (10-20); Calcium 8.8 mg/dl (8.6-10.3); Creatinine Clr Calc Pharmacy 59.4 ml/min; Magnesium 2.2 mg/dl (1.7-2.4)
[2024-01-19] MEDS: ATORVASTATIN 40 MG TAB PO SCH (08:28)
[2024-01-19 11:09] VITALS: TEMP 98.4; O2SAT 96
[2024-01-19] MEDS: CLOPIDOGREL BISULFATE 300 MG TAB PO STA (11:49)
[2024-01-19 13:51] VITALS: BP 129/82; PULSE 67
--- NOTE | 2024-01-19 14:31 | Cardiology Progress Note ---
Date of Service January 19, 2024 Assessment & Plan (1) ST elevation (STEMI) myocardial infarction: Plan: Post JESSEE to distal circumflex 01/16 No other significant nonculprit disease 2. Preserved LV functionsevere inferolateral hypokinesis, EF 50-55% 3. Moderate aortic regurgitation. 4. Dyslipidemia, LDL 146 5. Brief NSVT Stable from a cardiac standpoint and OK for discharge today. Continue DAPT for 1 year. Ok with transition to clopidogrel. Atorvastatin to 80 mg daily Continue current metoprolol Continue current losartan Will need periodic surveillance of moderate aortic regurgitation as an outpatient. Admission and Anticipated Discharge Date Admission Date: January 17, 2024 Subjective Feeling well. No chest pain. No other new complaints. Stable on telemetry. Review of Systems Review of Systems: All systems reviewed & are unremarkable except as noted in HPI & below Physical Exam Physical Exam: General: Comfortable HEENT: Sclerae anicteric Lungs: Clear to auscultation bilaterally Cardiac: Regular rate and rhythm, faint diastolic murmur Vascular: 2+ radial, no hematoma/ecchymosis. Abdomen: Soft, nontender Extremities: Well perfused, no peripheral edema Neuro: Nonfocal Psych: Alert orient x3, normal affect and mood Results & Data Vital Signs (Past 12 Hours) Vital Signs Temp Pulse Pulse Resp BP BP Pulse Ox 01/19/24 13:49 98.4 F 67 20 129/82 96 01/19/24 11:08 98.4 F 77 20 135/80 96 01/19/24 08:00 54 L 01/19/24 07:16 98.6 F 61 20 129/90 93 01/19/24 02:41 97.9 F 57 L 18 141/89 H 94 PG Care Time/CCT Total # of Minutes Spent Total Time Spent with Patient: Total time spent is greater than 50% in coordination of care (as documented) at patient's floor/unit and/or counseling patient: Coding Level of Care Code 40914 SUB INP/OBS CARE 2/35MIN Diagnoses ST elevation (STEMI) myocardial infarction I21.3
--- NOTE | 2024-01-19 15:35 | Discharge Summary ---
Discharge Summary Date of Service January 19, 2024 Principal Dx & Hospital Course #1 = Principal Diagnosis (1) ST elevation (STEMI) myocardial infarction: Emergent cardiac catheterization performed by Dr Avelar - 100% occluded mid to distal circumflex with PCI and x1 JESSEE placed ASA, Brilinta, Metoprolol, losartan, Atorvastatin [facility] cannot get brillinta, asked to change to plavix which is formulary, loaded with 300mg and changed to plavix 75 mg a day TTE: severe inferior hypokinesis EF: 50-55 communicated to m[facility] Physician operating room assistant on Day of Discharge Admission HPI Per Admitting Provider Elijah Figueroa is a 58 year old male who presents to the ER with chest pain. History taken with ER provider during heart alert, examination occurred following cardiac catheterization. Chest pain (midsternal) started at 12:30 PM with associated left arm numbness. ST elevations in inferior leads on EKG therefore heart rule out was called prior to arriving in the hospital. He was given 4 mg ondansetron, 4 mg morphine, 324 mg of aspirin and x 2.4 mg sublingual nitroglycerin en route to the hospital. No improvement with nitroglycerin given. Associated nausea now resolved after medication given by EMS. No personal or family history of cardiac disease. Discharge Exam Patient is without distress Card exam is regular Catheter site both at the wrist and groin are intact there is no bruit heard at the groin Discharge Plan Discharge Items [facility]position[facility] Reason For Visit: heart alert Discharge Diagnosis: STEMI s/p Drug Eluting STent to Circumflex artery morderate Aortic regurgitation brief NSVT Activity: Per Instructions section Activity Comment: no intentional exercise until seen in follow up by cardiology Non-emergency contact: Primary Care Provider and Social Media Manager Call non-emergency contact if: your symptoms worsen Follow-up/Referrals: PCP,NO [Physician] - Diet: Heart Healthy Addtl Attending Provider Instructions: Home Care: * Take your medications exactly as directed. Don't skip doses. * Remember that recovery after a heart attack takes time. Plan to rest for at lease 4-8 weeks while you recover. Then return to normal activity when your doctor says it's okay. * Ask your doctor about joining a heart rehabilitation program. * Tell your doctor if you are feeling depressed. Feelings of sadness are common after a heart attack, but it is important that you speak to someone if you are feeling overwhelmed by these feelings. * If you are having chest pain, call 911 for an ambulance. Do NOT drive yourself to the hospital. * Ask your family members to learn CPR. * Learn to take your own blood pressure and pulse. Keep a record of your results. Ask your doctor when you should seek emergency medical attention. He or she will tell you which blood pressure reading is dangerous. Lifestyle Changes: * Maintain a healthy weight. Get help to lose any extra pounds. * Cut back on salt. * Limit canned, dried, packaged, and fast foods. * Don't add salt to your food. * Season foods with herbs instead of salt when you cook. * Break the smoking habit. Enroll in a stop-smoking program to improve your chances of success. * Limit fatty foods. * Ask your doctor about having your lipid levels checked regularly. * Build up your activity according to your doctor's recommendation. * Ask your doctor when it's okay to resume sexual activity. * Tell your doctor about any erectile dysfunction (ED) medication you are taking. Some ED medications are not safe if you take certain heart medications. * Try to manage stress. Follow Up: It is important for you to keep your follow up appointments with your medical provider. Addtl Senior Planning Manager Provider Instructions: ACTIVITY RECOMMENDATIONS: Excess manipulation of the wrist should be avoided for the next 24-48 hours. * No lifting over 2 pounds (approximately a 1/2 gallon of milk) with the utilized arm for 24 hours. * No strenuous activity such as bowling or tennis for 3 days. * Keep the site of the procedure covered with a bandage for 24 hours. *You may shower the day after the procedure. Do not take a tub bath or submerge the puncture site in water for the next 3 days. *Do not operate any motorized equipment for 3 days. SPECIAL CARE INSTRUCTIONS: The site may be slightly bruised and sore following your procedure. Should any of the following occur, contact the Dr. who performed your procedure. 1. Redness/inflammation, swelling, chills, or fever, or colored drainage at procedure site within 3-7 days after your procedure. 2. Coldness, discoloration, ongoing numbness, severe pain, or swelling. Expect mild tingling of hand and tenderness at the puncture site for up to three days. If this persists beyond three days, or other symptoms develop, notify the DrOlaf who performed your procedure. BLEEDING: If the procedure site on your wrist begins to bleed, do not panic 1. Place 1 or 2 fingers firmly just slightly above the insertion site to stop the bleeding. You may be able to feel your pulse as you hold pressure. 2. Lift your finger after 5 minutes to see if the bleeding has stopped. 3. Once the bleeding has stopped, gently wipe the wrist area clean with a bandage. * If the bleeding from your wrist does not stop after 10 minutes, or if there is a large amount of bleeding or spurting, call 911 (do not drive yourself to the hospital). SKIN IRRITATION: * You may experience some redness and/or swelling in the area where radiation was administered. If any skin irritation occurs, please contact your family physician. FOLLOW UP VISIT: Keep any scheduled doctor appointments. Pending Studies at Discharge: No Stand-Alone Forms: My [facility] [employer] Skilled Items Patient informed of condition?: Yes Discharge Level of Care: Other Communicable Disease: No Discharge Prognosis: Stable Lines: None Urinary Catheter: No Medications and DC Order Prescriptions: New atorvastatin 40 mg Tablet 80 mg PO QAM Qty: 30 5RF aspirin 81 mg Tablet,Delayed Release (Dr/Ec) 81 mg PO QAM Qty: 30 5RF losartan 25 mg Tablet 25 mg PO QAM Qty: 30 5RF metoprolol succinate 50 mg tablet extended release 24 hr 50 mg PO DAILY Qty: 30 5RF clopidogrel [Plavix] 75 mg tablet 75 mg PO DAILY Qty: 30 5RF Discharge Orders: Discharge Order (Routine); Ordered 01/19/24 Ordered By: Remi Campuzano Admission Data Admit Date/Time: 01/17/24 15:31 Attending Provider: Reim Campuzano Admit Provider: Yasmani Jimenez Primary Care Provider: Omar Bolivar Other Providers: Tashi Avelar; Yasmani Jimenez; Edgard Houser Other Interventions: Discharge Summary Assessment (RN) Last Done: 01/19/24 13:49 Hospital Stay Data Consultations 01/17/24 14:18 Consult Cardiology Stat 01/17/24 14:26 ED Decision to Admit Stat 01/17/24 15:35 Consult Thermostat Maker Routine 01/17/24 16:00 Consult Cardiac Rehabilitation Routine Procedures Performed Operation Date: 01/17/24 14:00 Actual Procedures p Cineradiography w/Routine Exam - Tashi Avelar MD, PhD p Aspiration/PCI w/JESSEE for Stemi - Tashi Avelar MD, PhD Diagnostic Imagining Performed 01/17/24 14:15 CL Cath Imgs for PACS use only Stat Pending Results Patient Have Any Pending Studies at Discharge: No Discharge Instructions Given to Patient (Per Discharging Provider) Home Care: * Take your medications exactly as directed. Don't skip doses. * Remember that recovery after a heart attack takes time. Plan to rest for at lease 4-8 weeks while you recover. Then return to normal activity when your doctor says it's okay. * Ask your doctor about joining a heart rehabilitation program. * Tell your doctor if you are feeling depressed. Feelings of sadness are common after a heart attack, but it is important that you speak to someone if you are feeling overwhelmed by these feelings. * If you are having chest pain, call 911 for an ambulance. Do NOT drive yourself to the hospital. * Ask your family members to learn CPR. * Learn to take your own blood pressure and pulse. Keep a record of your results. Ask your doctor when you should seek emergency medical attention. He or she will tell you which blood pressure reading is dangerous. Lifestyle Changes: * Maintain a healthy weight. Get help to lose any extra pounds. * Cut back on salt. * Limit canned, dried, packaged, and fast foods. * Don't add salt to your food. * Season foods with herbs instead of salt when you cook. * Break the smoking habit. Enroll in a stop-smoking program to improve your chances of success. * Limit fatty foods. * Ask your doctor about having your lipid levels checked regularly. * Build up your activity according to your doctor's recommendation. * Ask your doctor when it's okay to resume sexual activity. * Tell your doctor about any erectile dysfunction (ED) medication you are taking. Some ED medications are not safe if you take certain heart medications. * Try to manage stress. Follow Up: It is important for you to keep your follow up appointments with your medical provider. Total Time Total Time Spent Total Time Spent (In Minutes): It required greater than 30 minutes to prepare this patient for discharge. Coding Level of Care Code 59468 INP/OBS DISCH >[address] elevation (STEMI) myocardial infarction I21.3
== END 2024-01-19 13:52 | DRG 322 ==
LOC: ED 14:02 → CC 14:13 → 1E 14:13 → SUATTDRO 15:31 → 1E 15:31 → 2E 01-18 13:06